=== PATIENT | female | born 1995 | race Caucasian/White ===

== ENCOUNTER 2020-12-13 09:05 | Inpatient (IN) | payer OTHER ==
[~2020-12-13] VITALS: Ht 149.9 cm; Wt 68.9 kg
[2020-12-13 09:49] VITALS: BP 122/74
[2020-12-13] MEDS ORDERED: PREN-217 PO (09:53)
[2020-12-13] MEDS ORDERED: ASPI-1450 PO (09:53)
[2020-12-13] MEDS ORDERED: EPHEDrine SULFATE 50 MG/ML VIAL IM ONE (12:00)
[2020-12-13] MEDS ORDERED: DEXAMETHASONE SOD PHOS 4 MG/ML VIAL IVP ONE (12:00)
[2020-12-13] MEDS ORDERED: ONDANSETRON HCL 4 MG/2 ML VIAL IVP ONE (12:00)
[2020-12-13] MEDS ORDERED: OXYTOCIN 10 UNITS/ML VIAL IM ONE (12:00)
[2020-12-13] MEDS ORDERED: OXYTOCIN 30 UNITS/LACT RINGERS 500 ML IV PRN (12:15)
[2020-12-13] MEDS ORDERED: METOCLOPRAMIDE HCL 5 MG/ML 2 ML VIAL IVP PRN (12:15)
[2020-12-13] MEDS ORDERED: CITRIC ACID/SODIUM CITRATE 30 ML SOLUTION UDCUP PO PRN (12:15)
[2020-12-13] MEDS ORDERED: RINGERS SOLUTION,LACTATED 1,000 ML IV PRN (12:15)
[2020-12-13] MEDS ORDERED: METHYLERGONOVINE MALEATE 0.2 MG/ML VIAL IM PRN (12:15)
[2020-12-13] MEDS ORDERED: LIDOCAINE/PF 1% 30 ML VIAL SQ PRN (12:15)
[2020-12-13] MEDS ORDERED: OXYTOCIN 30 UNITS/LACT RINGERS 500 ML IV ONE ×2 (12:15→23:15)
[2020-12-13] MEDS ORDERED: AMPICILLIN SODIUM 2 GM/NS 100 ML IV ONE (12:28)
[2020-12-13 12:45] LABS: COVID AG,FIA SOURCE NASOPHARYNGEAL
[2020-12-13 12:46] LABS: BASOPHILS % (AUTO) 0.6 % (0.0-2.0); EOSINOPHILS % (AUTO) 0.1 % (1.0-6.0); HEMATOCRIT 36.5 % (36-46); HEMOGLOBIN 12.2 g/dL (12.0-16.0); LYMPHOCYTES % (AUTO) 8.7 % (22.0-44.0); MEAN CORPUSCULAR HEMOGLOBIN 30.5 pg (26.0-34.0); MEAN CORPUSCULAR HGB CONC 33.6 G/dL (31.0-37.0); MEAN CORPUSCULAR VOLUME 91 fL (80-100); MONOCYTES # (AUTO) 0.4 K/uL (0.1-1.0); MONOCYTES % (AUTO) 3.5 % (2.0-9.0); NEUTROPHILS # (AUTO) 10.2 K/uL (1.8-7.7); PLATELET COUNT (AUTO)-OB 243 K/uL (150-450); RED BLOOD CELL COUNT(AUTO) 4.01 MIL/uL (4.00-5.20)
[2020-12-13 12:47] LABS: NEUTROPHILS % (AUTO) 87.1 % (40.0-70.0)
[2020-12-13] MEDS: RINGERS SOLUTION,LACTATED 1,000 ML IV SCH ×2 (12:50→21:23)
[2020-12-13] MEDS: CLINDAMYCIN 900 MG/D5% WATER 50 ML IV SCH ×2 (12:51→20:44)
[2020-12-13] MEDS ORDERED: BUPIVACAINE HCL/PF 0.25% 10 ML VIAL ONE (13:15)
[2020-12-13] MEDS ORDERED: ROPIVACAINE HCL/PF 0.2% 100 ML ED ONE (13:15)
[2020-12-13] MEDS ORDERED: DiphenhydrAMINE HCL 50 MG/ML VIAL IVP PRN ×2 (13:45→22:30)
[2020-12-13] MEDS ORDERED: ONDANSETRON HCL 4 MG/2 ML VIAL IVP PRN ×3 (13:45→22:45)
[2020-12-13] MEDS ORDERED: NALBUPHINE HCL 10 MG/ML VIAL IVP PRN ×3 (13:45→22:30)
[2020-12-13] MEDS ORDERED: ROPIVACAINE HCL/PF 0.2% 100 ML ED PRN (13:45)
[2020-12-13] MEDS ORDERED: INFLUENZA VIRUS VACCINE QVS 2020-21 (6MO+)/PF 60 MCG/0.5 ML SYRINGE IM ONE (16:45)
[2020-12-13] MEDS ORDERED: OXYGEN THERAPY IH SCH (20:00)
[2020-12-13] MEDS ORDERED: ACETAMINOPHEN 1000 MG/ISO-OSM 100 ML IV ONE (21:41)
[2020-12-13] MEDS ORDERED: LIDOCAINE 2%/EPI 1:200,000/PF 20 ML VIAL ONE (21:42)
[2020-12-13] MEDS ORDERED: MORPHINE SULFATE/PF 1 MG/ML 10 ML AMP ONE (22:17)
[2020-12-13] MEDS ORDERED: MORPHINE SULFATE 10 MG/ML VIAL IVP PRN (22:30)
[2020-12-13] MEDS ORDERED: NALOXONE HCL 0.4 MG/ML VIAL IVP PRN (22:30)
[2020-12-13] MEDS ORDERED: FentaNYL CITRATE PF 100 MCG/2 ML VIAL IVP PRN (22:30)
[2020-12-13] MEDS ORDERED: GUM MASTIC/STORAX/MSAL/ALCOHOL LIQUID 0.67 ML VIAL TP ONE (22:43)
[2020-12-13] MEDS ORDERED: TRANEXAMIC ACID 1,000 MG in DEXTROSE 5%-WATER 50 ML IV ONE (23:00)
[2020-12-13] MEDS ORDERED: LANOLIN 7 GM OINTMENT TP PRN (23:15)
[2020-12-14] MEDS ORDERED: FentaNYL CITRATE PF 100 MCG/2 ML VIAL ONE
[2020-12-14] MEDS: FentaNYL CITRATE PF 100 MCG/2 ML VIAL IVP PRN ×2 (00:33→00:37)
[2020-12-14] MEDS ORDERED: ACETAMINOPHEN 1000 MG/ISO-OSM 100 ML IV ONE (00:45)
[2020-12-14] MEDS: ACETAMINOPHEN 1000 MG/ISO-OSM 100 ML IV SCH ×2 (00:48→08:41)
[2020-12-14] MEDS: KETOROLAC TROMETHAMINE 30 MG/ML VIAL IVP SCH ×2 (04:15→09:52)
[2020-12-14] MEDS: RINGERS SOLUTION,LACTATED 1,000 ML IV SCH ×2 (04:15→12:51)
[2020-12-14 06:36] LABS: BASOPHILS % (AUTO) 0.2 % (0.0-2.0); EOSINOPHILS % (AUTO) 0 % (1.0-6.0); HEMATOCRIT 28.3 % (36-46); HEMOGLOBIN 9.6 g/dL (12.0-16.0); LYMPHOCYTES # (AUTO) 1.7 K/uL (1.0-4.8); LYMPHOCYTES % (AUTO) 14.9 % (22.0-44.0); MEAN CORPUSCULAR HEMOGLOBIN 31.2 pg (26.0-34.0); MEAN CORPUSCULAR HGB CONC 34.1 G/dL (31.0-37.0); MEAN CORPUSCULAR VOLUME 91 fL (80-100); MONOCYTES # (AUTO) 0.8 K/uL (0.1-1.0); MONOCYTES % (AUTO) 6.6 % (2.0-9.0); NEUTROPHILS # (AUTO) 8.9 K/uL (1.8-7.7); NEUTROPHILS % (AUTO) 78.3 % (40.0-70.0); PLATELET COUNT (AUTO)-OB 196 K/uL (150-450); RED BLOOD CELL COUNT(AUTO) 3.09 MIL/uL (4.00-5.20); RED CELL DISTRIBUTION WIDTH 13.2 % (11.5-14.5)
[2020-12-14] MEDS ORDERED: OXYGEN THERAPY IH SCH ×2 (08:00)
[2020-12-14] MEDS: MAGNESIUM HYDROXIDE SUSPENSION 30 ML UDCUP PO SCH ×2 (08:41→21:57)
[2020-12-14] MEDS: OxyCODONE HCL/ACETAMINOPHEN 5-325 MG TABLET PO PRN ×2 (16:16→19:29)
[2020-12-14] MEDS: IBUPROFEN 800 MG TABLET PO PRN (23:21)
[2020-12-15 07:26] LABS: BASOPHILS % (AUTO) 0.4 % (0.0-2.0); EOSINOPHILS % (AUTO) 1.5 % (1.0-6.0); HEMATOCRIT 28.6 % (36-46); HEMOGLOBIN 9.6 g/dL (12.0-16.0); LYMPHOCYTES # (AUTO) 2.1 K/uL (1.0-4.8); LYMPHOCYTES % (AUTO) 20.4 % (22.0-44.0); MEAN CORPUSCULAR HEMOGLOBIN 31.1 pg (26.0-34.0); MEAN CORPUSCULAR HGB CONC 33.6 G/dL (31.0-37.0); MEAN CORPUSCULAR VOLUME 93 fL (80-100); MONOCYTES # (AUTO) 0.8 K/uL (0.1-1.0); MONOCYTES % (AUTO) 7.5 % (2.0-9.0); NEUTROPHILS # (AUTO) 7.1 K/uL (1.8-7.7); NEUTROPHILS % (AUTO) 70.2 % (40.0-70.0); PLATELET COUNT (AUTO)-OB 224 K/uL (150-450); RED BLOOD CELL COUNT(AUTO) 3.09 MIL/uL (4.00-5.20); RED CELL DISTRIBUTION WIDTH 13.5 % (11.5-14.5)
[2020-12-15] MEDS: IBUPROFEN 800 MG TABLET PO PRN ×3 (07:51→20:06)
[2020-12-15] MEDS: MAGNESIUM HYDROXIDE SUSPENSION 30 ML UDCUP PO SCH ×2 (07:51→21:00)
[2020-12-15] MEDS: OxyCODONE HCL/ACETAMINOPHEN 5-325 MG TABLET PO PRN ×2 (07:52→14:11)
[2020-12-16] MEDS: MAGNESIUM HYDROXIDE SUSPENSION 30 ML UDCUP PO SCH (03:54)
[2020-12-16] MEDS: IBUPROFEN 800 MG TABLET PO PRN ×2 (04:14→11:40)
[2020-12-16] MEDS ORDERED: FERR-89 PO (10:13)
[2020-12-16] MEDS ORDERED: IBUP-2070 PO (10:14)
[2020-12-16] MEDS ORDERED: DOCU-270 PO (10:15)
== END 2020-12-16 12:00 | disposition home or self-care (01) | DRG 540 ==
LOC: 4S 09:05 → OBSVTOIN 09:05 → 4S 12-14 01:45
PROVIDERS: ADMIT Obstetrics & Gynecology; ATTEND Obstetrics & Gynecology
PROC: 10D00Z1 Extraction of Products of Conception, Low, Open Approach (ICD-10-PCS; principal; 2020-12-13)
PROC: 3E02340 Introduction of Influenza Vaccine into Muscle, Percutaneous Approach (ICD-10-PCS; 2020-12-13)
DX: O69.81X0 Labor and delivery complicated by cord around neck, without compression, not applicable or unspecified (principal); O99.824 Streptococcus B carrier state complicating childbirth; O62.0 Primary inadequate contractions; Z37.0 Single live birth; O32.4XX0 Maternal care for high head at term, not applicable or unspecified; Z3A.38 38 weeks gestation of pregnancy; Z20.822 Contact with and (suspected) exposure to COVID-19; Z23 Encounter for immunization
CPT/HCPCS: 85025; 86850; 86900; 86901; 90686; J0131; J0290; J1100; J1200; J1885; J2405; J2590; J2765; J2795; J3010; J3490; J7060; J7120